=== PATIENT | female | born 1985 | race Caucasian/White ===

== ENCOUNTER 2018-07-07 10:45 | Observation (INO) | payer MEDICAID ==
[~2018-07-07] VITALS: Ht 149.9 cm; Wt 66.8 kg
--- NOTE | ~2018-07-07 | HEMODYNAMI ---
PATIENT:SAMARIA DAMON MEDICAL RECORD: [id number] : 85 [facility] [id number] ADMISSION DATE: 07/07/18 Generatedon:07/08/201812:50 Patient name: SAMARIA DAMON Patient #: [id number] SSN: : 1985 Date of study: 07/08/2018 Page: Of Hemodynamic Procedure Report Patient Data Patient Demographics Procedure consent was obtained First Name: SAMARIA Gender: Female Last Name: MARISOL : 1985 Patient #: [id number] Age: 32 year(s) Race: Unknown Additional ID: [id number] Contact details Address: [address] [place] [address] State: [place] [facility] [place]: [address] Past Medical History Allergies: No known allergies Admission Admission Data Admission Date: 07/07/2018 Admission Time: 16:51 Room #: D2119 Lab Results Lab Result Date: 07/08/2018 Lab Result Time: 4:15 Biochemistry Name Units Result Min Max BUN mg/dl 16 --(---*)-- 7 18 Creatinine mg/dl 0.8 --(-*--)-- 0.6 1.3 CBC Name Units Result Min Max Hematocrit % 34 *-(----)-- 42 54 Hemoglobin g/dl 10.9 *-(----)-- 13.5 17.5 Procedure Procedure Types Cath Procedure Diagnostic Procedure LHC LHC w/Coronaries Procedure Description Procedure Date Procedure Date: 07/08/2018 Procedure Start Time: 12:42 Procedure End Time: 12:48 Procedure Staff Name Function Ramin Amanda MD Performing Physician Desean Lua RT Monitor Susie Phillips RT Scrub Anali Foster RN Nurse Abdias Turner RN Runway Model Procedure Data Cath Procedure Fluoroscopy Diagnostic fluoroscopy Total fluoroscopy Time: 1.4 time: 1.4 min min Diagnostic fluoroscopy Total fluoroscopy dose: 105 dose: 105 mGy mGy Contrast Material Contrast Material Type Amount (ml) Isovue 300 23 Entry Location Entry Primary Successful Side Size Upsize Upsize Entry Closure Baldwin ccessful Closure Location (Fr) 1 (Fr) 2 (Fr) Remarks Device Remarks Radial Right 6 Fr Mechanical artery Short Compression Estimated blood loss: 5 ml Diagnostic catheters Device Type Used For End Catheter Placement DIAGNOSTIC [place] 110cm 5 Procedure Fr catheter ([id number]) Procedure Complications No complications Procedure Medications Medication Administration Route Dosage 0.9% NaCl I.V. 100 ml/hr Oxygen etCO2 Nasal cannula 2 l/min Lidocaine 2% added to field 20 Heparin Flush Bag added to field 2 bags (1000units/500ml NS) Radial Cocktail added to field 1 syringe (Verapomil 2mg/Nitro 400mcg/Heparin 1500units) Versed I.V. 2 mg Fentanyl I.V. 50 mcg Versed I.V. 2 mg Fentanyl I.V. 50 mcg Lopressor I.V. 5 mg Hemodynamics Rest HGB: 10.9 (g/dl) Heart Rate: 105 (bpm) Snapshots Pre Cath Intra NCS Post Cath Vital Signs Time Heart Resp SPO2 etCO2 NIBP (mmHg) Rhythm Pain Sedation Rate (ipm) (%) (mmHg) Status Level (bpm) 12:18:13 108 8 99 27 132/73(96) NSR 0 (11) 10(A) , No pain 12:22:27 113 14 100 28.6 121/78(101) NSR 0 (11) 10(A) , No pain 12:26:39 101 16 99 32.3 116/69(91) NSR 0 (11) 10(A) , No pain 12:30:55 95 30 99 33.1 117/66(90) NSR 0 (11) 10(A) , No pain 12:35:09 94 26 98 31.5 115/70(92) NSR 0 (11) 10(A) , No pain 12:39:21 102 17 99 32.3 115/70(92) NSR 0 (11) 10(A) , No pain 12:43:35 122 13 96 31.5 111/58(93) NSR 0 (11) 10(A) , No pain 12:47:51 93 28 98 33.8 114/62(88) NSR 0 (11) 10(A) , No pain Medications Time Medication Route Dose Verified Delivered Reason Notes E ffectiveness by by 12:07:41 0.9% NaCl I.V. 100 Ramin Anali used for ml/hr Vasiliy Foster nurse wound care 12:07:48 Oxygen etCO2 2 l/min Ramin Anali used for Nasal Vasiliy Foster procedure cannula RN 12:07:54 Lidocaine 2% added 20ml Ramin Faustin for local to vial Vasiliy Amanda MD anesthetic field 12:07:58 Heparin Flush added 2 bags Ramin Faustin used for Bag to Vasiliy Amanda MD procedure (1000units/500ml field NS) 12:18:00 Radial Cocktail added 1 Ramin Faustin used for (Verapomil to syringe Vasiliy Amanda MD procedure 2mg/Nitro field 400mcg/Heparin 1500units) 12:37:44 Versed I.V. 2 mg Ramin Anali for Vasiliy Foster sedation RN 12:37:51 Fentanyl I.V. 50 mcg Ramin Anali for Vasiliy Foster sedation RN 12:42:31 Versed I.V. 2 mg Ramin Anali for Vasiliy Foster sedation RN 12:42:39 Fentanyl I.V. 50 mcg Ramin Anali for Vasiliy Foster sedation RN 12:45:46 Lopressor I.V. 5 mg Ramin Dineroyla Per Vasiliy Foster physician retail service representative Log Time Note 12:02:11 Signed procedure consent form obtained from patient. 12:02:12 Diagnostic Cath status Elective 12:02:49 Time tracking: Regular hours (M-F 7:00 - 5:00) 12:02:53 Plan of Care:Hemodynamics will remain stable., Cardiac rhythm will remain stable., Comfort level will be maintained., Respiratory function will remain adequate., Patient/ family verbilizes understanding of procedure., Procedure tolerated without complication., Recovers from procedure without complications.. 12:05:51 Abdias Turner RN sent for patient. Start room use. 12:07:41 0.9% NaCl 100 ml/hr I.V. was administered by Anali Foster RN; used for procedure; 12:07:48 Oxygen 2 l/min etCO2 Nasal cannula was administered by Anali Foster RN; used for procedure; 12:07:54 Lidocaine 2% 20ml vial added to field was administered by Ramin Amanda MD; for local anesthetic; 12:07:58 Heparin Flush Bag (1000units/500ml NS) 2 bags added to field was administered by Ramin Amanda MD; used for procedure; 12:11:27 Patient received from Med II to CCL 1 Alert and oriented. Tansferred to table in Supine position. 12:11:28 Warm blankets applied, and archie hugger turned on for patient comfort. 12:11:29 Correct patient and procedure confirmed by team. 12:11:30 ECG and BP/O2 sat monitors applied to patient. 12:17:07 Vital chart was started 12:18:00 Radial Cocktail (Verapomil 2mg/Nitro 400mcg/Heparin 1500units) 1 syringe added to field was administered by Ramin Amanda MD; used for procedure; 12:25:18 Baseline sample Acquired. 12:25:21 Rhythm: sinus tachycardia 12:25:23 Full Disclosure recording started 12:25:30 H&P Date Dictated: 07/07/2018 Within 30 days and on chart.. 12:25:32 Pre-procedure instructions explained to patient. 12:25:32 Pre-op teaching completed and patient verbalized understanding. 12:25:34 Family in patients room. 12:25:35 Patient NPO since Midnight. 12:25:40 Patient allergic to No known allergies 12:25:42 Is the patient allergic to Iodine/contrast media? No. 12:25:43 Is patient on blood thinner?No 12:25:44 Patient diabetic? No. 12:25:46 Previous problem with sedation/anesthesia? No ? 12:25:47 Snore? No 12:25:48 Sleep apnea? No 12:25:49 Deviated septum? No 12:25:53 Opens mouth fully? Yes 12:25:54 Sticks out tongue? Yes 12:25:56 Airway obstruction? No ? 12:25:57 Dentures? No ? 12:25:59 Modified Edgar's test Ulnar < 7 seconds 12:26:01 Patient pain scale 0/10 ?. 12:26:08 IV patent on arrival in left wrist with 0.9% NaCl at O. 12:27:00 Lab Result : BUN 16 mg/dl 12:27:00 Lab Result : Hemoglobin 10.9 g/dl 12:27:00 Lab Result : Creatinine 0.8 mg/dl 12:27:00 Lab Result : Hematocrit 34 % 12:27:03 Lab results completed and on chart. 12:27:24 Right Radial & Right Groin area was prepped with chlora-prep and draped in sterile fashion 12::25 Alarms reviewed by R. N. 12:27: Sharps counted by scrub and verified by R.N. 12:27:28 Use device set Radial Dx or PCI 12:27:29 ACIST Syringe (95048) opened to sterile field. 12:27:29 Medline Cath Pack ([id number]) opened to sterile field. 12:27:30 Bag Decanter (2002S) opened to sterile field. 12:27:31 ACIST Hand Control (44933) opened to sterile field. 12:27:31 ACIST Manifold (84626) opened to sterile field. 12:27:32 Tegaderm 4 x 4 (1626W) opened to sterile field. 12:27:32 MBrace Wrist Support ([id number]) opened to sterile field. 12:27:33 SHEATH 6FR Slender (07-1060) opened to sterile field. 12:27:34 DIAGNOSTIC WIRE .035 260cm J wire (387545) opened to sterile field. 12:28:25 Zero performed for pressure channel P1 12::28 Zero performed for pressure channel P1 12::34 Zero performed for pressure channel P1 12:37:17 Physician arrived 12:37:18 --------ALL STOP TIME OUT------ 12:37:18 Final Timeout: patient, procedure, and site verified with staff and physician. All members of the team are in agreement. 12:37:21 Right Radial & Right Groin site verified by team. 12:37:24 Physical assessment completed. ASA score P 2 - A patient with mild systemic disease as per Ramin Amanda MD. 12:37:27 Sedation plan: IV Moderate Sedation Medication:Versed, Fentanyl 12:37:44 Versed 2 mg I.V. was administered by Anali Foster RN; for sedation; 12:37:51 Fentanyl 50 mcg I.V. was administered by Anali Foster RN; for sedation; 12:42:25 Procedure started. 12:42:29 Local anesthetic to right radial artery with Lidocaine 2% by Ramin Amanda MD.INITIAL ACCESS ONLY 12:42:31 Versed 2 mg I.V. was administered by Anali Foster RN; for sedation; 12:42:39 Fentanyl 50 mcg I.V. was administered by Anali Foster RN; for sedation; 12:42:58 A 6 Fr Short sheath was inserted into the Right Radial artery 12:43:11 A DIAGNOSTIC [place] 110cm 5 Fr catheter (047456) was advanced over the wire and used for Procedure. 12:44:02 LV gram done using SALTER 12:44:08 Injector settings: Ml/sec: 5, Volume: 15, 12:44:13 EF : 60 % 12:44:21 RCA angiography performed. 12:45:12 LCA angiography performed. 12:45:40 Catheter removed. 12:45:46 Lopressor 5 mg I.V. was administered by Anali Foster RN; Per physician; 12:45:47 TR BAND Standard ([id number]) opened to sterile field. 12:45:58 Sheath removed intact; hemostasis achieved with Mechanical Compression to the Right Radial artery. 12:46:00 Procedure ended.(Physican Out) 12:46:15 Fluoroscopy time 01.40 minutes. 12:46:18 Fluoroscopy dose: 105 mGy 12:46:18 Flurop Dose total: 105 12:46:22 Contrast amount:Isovue 300 23ml. 12:46:24 Sharps counted by scrub and verified by R.N. 12:46:28 TR band inflated with 12cc of air. 12:46:29 Insertion/operative site no bleeding no hematoma. 12:46:44 Post right radial artery:stable, soft, clean and dry 12:46:47 Post Procedure Pulses reassessed and unchanged 12:46:51 Post-procedure physical assessment completed. ASA score P 2 - A patient with mild systemic disease as per Ramin Amanda MD. 12:46:56 Estimated blood loss: 5 ml 12:47:01 Post procedure instruction explained to patient.Patient verbalizes understanding. 12:47:01 Patient needs reinforcement of post procedure teaching. 12:47:37 Procedure and supply charges have been captured, reviewed, submitted and are correct. 12:47:39 Procedure Complication : No complications 12:47:41 Vital chart was stopped 12:47:42 See physician's report for complete and final results. 12:48:14 Report given to PCU. 12:48:17 Patient transfered to PCU with Stretcher. 12:48:18 Procedure ended. 12:48:18 Full Disclosure recording stopped 12:48:21 End room use (Document Last) Device Usage Item Name Manufacture Quantity Catalog Hospital Part Current Minimal Lot# / Number Charge Number Stock Stock Serial# Code ACIST Acist 1 94523 908918 894315 872575 20 Syringe Medical (33428) Systems Inc Medline Medline 1 [id number] 062036 57721 027535 5 Cath Pack ([id number]) Bag Microtek 1 2001S 794457 41892 452853 5 Decanter Medical Inc. () ACIST Hand Acist 1 58260 815923 439192 635467 5 Control Medical (43816) Systems Inc ACIST Acist 1 59144 537165 922528 276717 5 Manifold Medical (59608) Systems Inc Tegaderm 4 3M 1 1626W 097257 599278 486862 5 x 4 (1626W) MBrace Advanced 1 140-0250-00 474822 54163 305842 5 Wrist Vascular Support Dynamics ([id number]) SHEATH 6FR Terumo 1 [id number] 639631 537260 217650 40 Slender (80-1060) DIAGNOSTIC St Ricardo 1 621046 168022 764638 113791 30 WIRE .035 260cm J wire (020747) DIAGNOSTIC Terumo 1 40-4603 960538 924105 118609 5 [place] 110cm 5 Fr catheter (786776) TR BAND Terumo 1 [id number] 661855 541222 020128 40 Standard ([id number]) Signature Audit [place] Stage Time Signature Unsigned Intra-Procedure 07/08/2018 Desean Lua 12:49:58 PM RT(R) Signatures Monitor : Desean Lua RT Signature : Date : Time : [facility] [address] [facility], [place] [address]
--- NOTE | ~2018-07-07 | MORECARE ---
CASE MANAGEMENT DISCHARGE SUMMARY PATIENT: SAMARIA DAMON UNIT: [id number] ADM DATE: 07/07/18 AGE: 32 : [birth year] SEX: F ROOM/BED: D.2119 AUTHOR: OTILIO BOB PHYSICIAN: REFERRING PHYSICIAN: YASMINE QUINTANILLA MD DATE OF SERVICE: 07/11/18 Discharge Plan Patient Name: SAMARIA DAMON Facility: [facility]:[place] : 1985 Planned Disposition: Home Anticipated Discharge Date: 07/08/18 Discharge Date: 07/08/2018 Expected LOS: 1 Initial Reviewer: [email or web address] Initial Review Date: 07/10/2018 Generated: 07/11/18 9:40 am Last DP export: 07/10/18 8:10 Patient Name: SAMARIA DAMON Page 74610 at 0840 All edits/amendments must be made on the electronic document DICTATION DATE: 07/11/18838 CHANGE PERSON: JANUSZ 07/11/18 0839 RPT#: [id number] DC DATE:07/08/18 STATUS: DIS IN [facility] [address] [place] [address] END OF REPORT
--- NOTE | ~2018-07-07 | MORECARE ---
CASE MANAGEMENT DISCHARGE SUMMARY PATIENT: SAMARIA DAMON UNIT: [id number] ADM DATE: 07/07/18 AGE: 32 : 85 SEX: F ROOM/BED: D.2119 AUTHOR: OTILIO BOB PHYSICIAN: REFERRING PHYSICIAN: YASMINE QUINTANILLA MD DATE OF SERVICE: 07/10/18 Discharge Plan Patient Name: SAMARIA DAMON Facility: [facility]:[place] : 1985 Planned Disposition: Home Anticipated Discharge Date: 07/08/18 Discharge Date: 07/08/2018 Expected LOS: 1 Initial Reviewer: [email or web address] Initial Review Date: 07/10/2018 Generated: 07/10/18 10:10 am Patient Name: SAMARIA DAMON Page 21082 at 0910 All edits/amendments must be made on the electronic document DICTATION DATE: 07/10/18908 LAMINATOR PRINTED CIRCUIT BOARDS: JANUSZ 07/10/18908 RPT#: [id number] DC DATE:07/08/18 STATUS: DIS IN [facility] [address] [place] [address] END OF REPORT
--- NOTE | ~2018-07-07 | OP ---
PATIENT NAME: SAMARIA DAMON MEDICAL RECORD: [id number] :85 LOCATION:D.M2 D.2119 ADMISSION DATE:07/07/18 SURGEON: JEREMI POSEY MD DATE OF OPERATION: 07/08/2018 PROCEDURES: 1. Left heart catheterization. 2. Selective coronary angiography. 3. Left ventriculogram. INDICATION: Chest pain compatible with angina. PROCEDURE IN DETAIL: After informed consent was obtained with detailed description of risks and benefits as well as alternative therapies, the patient elected to proceed with angiogram and heart catheterization. The right radial area was prepped and draped in normal sterile fashion. Right radial artery was cannulated via modified Seldinger technique with placement of 5-Slovak sheath. All catheters were exchanged through this sheath. FINDINGS: Left ventriculogram performed in standard 30-degree SALTER view reveals good cardiac wall motion throughout all segments. Overall ejection fraction estimated at 60%. SELECTIVE CORONARY ANGIOGRAPHY: Left main, left anterior descending, left circumflex, and right coronary artery are all smooth-walled vessels with no angiographic evidence of coronary artery disease. OVERALL IMPRESSION: 1. No angiographic evidence of coronary artery disease. 2. Normal left heart pressures. 3. Normal left ventricular systolic function. Chest pain is noncardiac in etiology. No further cardiac workup needs to be ascertained. TRANSINT:[id number] Voice Confirmation ID: [id number] DOCUMENT ID: [id number] JEREMI POSEY MD at 1704 CC: [id number] DICTATION DATE: 07/08/18 1250 MOLD CARRIER: 07/08/18 1410 ADM IN [place] [address] [place] [address]
[2018-07-07 11:57] LABS: BASOPHILS 0.3 % (0-2); EOSINOPHILS 0.6 % (0-7); HEMOGLOBIN 11.4 g/dL (12-16); IMMATURE GRANULOCYTES 0.4 % (0-5); LYMPHOCYTES 35.7 % (15-50); MCH 29.2 pg (26.0-34.0); MCHC 32.6 g/dL (31.0-37.0); MCV 89.7 fL (80.0-100.0); MEAN PLATELET VOLUME 10.5 fL (7.4-10.4); MONOCYTES 9.5 % (2-11); NEUTROPHILS 53.5 % (40-80); PLATELET COUNT 268 10x3/uL (130-400); RDW 12.5 % (11.5-14.5); WBC 7.8 10x3/uL (4.8-10.8)
[2018-07-07 12:32] LABS: ALBUMIN 3.7 g/dL (3.4-5.0); ALKALINE PHOSPHATASE 84 U/L (46-116); ALT (SGPT) 22 U/L (10-68); BILIRUBIN - TOTAL 0.32 mg/dL (0.2-1.3); CALC OSMOLALITY 281 mosm/kg (275-300); CALCIUM 9.2 mg/dL (8.5-10.1); CARBON DIOXIDE 25.1 mmol/L (21.0-32.0); CHLORIDE - SERUM 106 mmol/L (98-107); CREATININE - SERUM 0.7 mg/dL (0.6-1.3); GLUCOSE 155 mg/dL (74-106); POTASSIUM - SERUM 3.4 mmol/L (3.5-5.1); PROTEIN - SERUM 8.2 g/dL (6.4-8.2); SODIUM 140 mmol/L (136-145); UREA NITROGEN 13 mg/dL (7-18); eGFR NON AFRICAN AMERICAN > 90 mL/min (90-120)
[2018-07-07 12:43] LABS: CKMB 0.6 U/L (0.0-3.6); CREATINE KINASE 298 UL (21-215)
[2018-07-07 12:44] LABS: TROPONIN-I < 0.017 ng/mL (0.000-0.060)
[2018-07-07 12:51] VITALS: BP 135/081
[2018-07-07 17:32] VITALS: BP 126/081
[2018-07-07 18:09] LABS: CKMB 0.3 U/L (0.0-3.6); CREATINE KINASE 290 UL (21-215)
[2018-07-07 18:21] LABS: TROPONIN-I < 0.017 ng/mL (0.000-0.060)
[2018-07-07 19:00] VITALS: BP 112/75
[2018-07-07] MEDS ORDERED: XARELTO10 MG PO (19:14)
[2018-07-07] MEDS ORDERED: CLARITIN 10 MG10 MG PO (19:14)
[2018-07-07 22:50] LABS: CKMB 0.4 U/L (0.0-3.6); CREATINE KINASE 263 UL (21-215)
[2018-07-07 22:53] LABS: TROPONIN-I < 0.017 ng/mL (0.000-0.060)
[2018-07-07 23:08] VITALS: BP 138/72; BMI 29.7
[2018-07-08 01:37] VITALS: BP 167/79
[2018-07-08 04:37] LABS: BASOPHILS 0 % (0-2); EOSINOPHILS 0 % (0-7); HEMOGLOBIN 10.9 g/dL (12-16); IMMATURE GRANULOCYTES 0.4 % (0-5); LYMPHOCYTES 10.3 % (15-50); MCH 28.8 pg (26.0-34.0); MCHC 32.1 g/dL (31.0-37.0); MCV 89.7 fL (80.0-100.0); MEAN PLATELET VOLUME 9.4 fL (7.4-10.4); MONOCYTES 6.9 % (2-11); NEUTROPHILS 82.4 % (40-80); PLATELET COUNT 239 10x3/uL (130-400); RBC 3.79 10x6/uL (4.00-5.40); RDW 12.4 % (11.5-14.5)
[2018-07-08 04:44] LABS: WBC 13.9 10x3/uL (4.8-10.8)
[2018-07-08 05:32] LABS: ALBUMIN 3.4 g/dL (3.4-5.0); ALKALINE PHOSPHATASE 75 U/L (46-116); ALT (SGPT) 21 U/L (10-68); CALCIUM 9.1 mg/dL (8.5-10.1); CARBON DIOXIDE 22.7 mmol/L (21.0-32.0); CHLORIDE - SERUM 104 mmol/L (98-107); CKMB 0.5 U/L (0.0-3.6); CREATINE KINASE 196 UL (21-215); CREATININE - SERUM 0.8 mg/dL (0.6-1.3); MAGNESIUM - SERUM 1.8 mg/dL (1.8-2.4); POTASSIUM - SERUM 3.9 mmol/L (3.5-5.1); PROTEIN - SERUM 7.8 g/dL (6.4-8.2); SODIUM 137 mmol/L (136-145); UREA NITROGEN 16 mg/dL (7-18); eGFR NON AFRICAN AMERICAN 88 mL/min (90-120)
[2018-07-08 05:33] LABS: CALC OSMOLALITY 281 mosm/kg (275-300); GLUCOSE 228 mg/dL (74-106); TROPONIN-I < 0.017 ng/mL (0.000-0.060)
[2018-07-08 06:11] VITALS: BP 92/65
[2018-07-08 08:11] VITALS: BP 100/54
[2018-07-08 08:33] VITALS: Ht 149.9 cm; Wt 66.8 kg
[2018-07-08 10:45] LABS: HCG URINE NEGATIVE (NEGATIVE)
[2018-07-08 10:57] LABS: APPEARANCE TURBID (CLEAR); BILIRUBIN NEGATIVE (NEGATIVE); COLOR YELLOW (YELLOW); GLUCOSE 500 mg/dL (NEGATIVE); KETONE SMALL mg/dL (NEGATIVE); NITRITE NEGATIVE (NEGATIVE); PROTEIN NEGATIVE (NEGATIVE); SPECIFIC GRAVITY 1.025 (1.005-1.020)
[2018-07-08 10:59] LABS: AMORPHOUS SEDIMENT >1+ /lpf (NONE SEEN); BACTERIA FEW /hpf (NONE SEEN); EPITHELIAL CELLS 0-5 /hpf (0-5); WHITE CELLS - URINE 0-5 /hpf (0-5)
[2018-07-08 11:00] LABS: GRANULAR CAST OCC /lpf (NONE SEEN)
[2018-07-08 11:08] VITALS: BP 107/60
[2018-07-08] MEDS ORDERED: ASPIRIN325 MG PO (14:34)
[2018-07-08 16:40] VITALS: BP 112/66
[2018-07-10 12:17] LABS: LUPUS - INTERPRETATION Comment: (()); LUPUS - THROMBIN TIME 16.9 sec (0.0-23.0); LUPUS - dRVVT 32.4 sec (0.0-47.0); PTT-LA 26.6 sec (0.0-51.9)
== END 2018-07-08 17:42 | disposition home or self-care (01) ==
LOC: D.ER 10:45 → D.EDHOLD 16:51 → OBSVTIME 16:51 → EDBD 16:51 → D.M2 16:51
PROVIDERS: Family Medicine; Internal Medicine Hematology & Oncology
DX: R07.89 Other chest pain (principal); Z86.718 Personal history of other venous thrombosis and embolism; Z79.01 Long term (current) use of anticoagulants; I49.9 Cardiac arrhythmia, unspecified